=== PATIENT | female | born 1955 | race Caucasian/White ===

== ENCOUNTER 2019-04-28 11:09 | Emergency (ER) | payer MEDICARE, OTHER | END 2019-04-28 11:37 | disposition home or self-care (01) | LOC: ER FS 11:09 ==

== ENCOUNTER 2019-05-15 06:04 | Emergency (ER) | payer MEDICARE ==
[~2019-05-15] VITALS: Ht 172.2 cm; Wt 66.6 kg
[2019-05-15 06:25] VITALS: BP 171/101
[2019-05-15] MEDS ORDERED: CYCL10TA9 PO (06:28)
[2019-05-15] MEDS ORDERED: TRAM50TA2 PO (06:28)
[2019-05-15] MEDS ORDERED: KETOROLAC 60 MG/2 ML VIAL IM ONE (06:30)
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
== END 2019-05-15 06:36 | disposition home or self-care (01) ==
LOC: EDUNIT# 06:04 → ER FS 06:05
DX: S09.90XA Unspecified injury of head, initial encounter (principal); G89.29 Other chronic pain; M54.2 Cervicalgia; J44.9 Chronic obstructive pulmonary disease, unspecified; G43.909 Migraine, unspecified, not intractable, without status migrainosus; Z88.5 Allergy status to narcotic agent; Z90.49 Acquired absence of other specified parts of digestive tract; Z87.39 Personal history of other diseases of the musculoskeletal system and connective tissue; V89.2XXA Person injured in unspecified motor-vehicle accident, traffic, initial encounter
CPT/HCPCS: 96372; 99284